=== PATIENT | male | born 1970 | race Caucasian/White ===

== ENCOUNTER 2021-01-06 12:55 | Emergency (ER) | payer OTHER ==
--- OUTSIDE RECORDS SUMMARY | 2021-01-06 12:58 | XMS REPORT | Continuity of Care Document ---
:1970 Author Organization [facility] t Address [address] [place] [address] Care Team Providers Name Role Phone LYLE Attending Clinician Unavailable NAIF Attending Clinician Unavailable Problems Condition Condition Condition Status Onset Resolution Last Treating Co mments Source Name Details Category Date Date Treatment Clinician Date Diabetes Diabetes Problem Active Unive rs mellitus mellitus ity of type 1, type 1, [place] uncontroll uncontroll Ph ysici ed ed ans Obesity Obesity Problem Active Univers (BMI (BMI ity of 30-39.9) 30-39.9) [place] Physici ans Allergies, Adverse Reactions, Alerts This patient has no known allergies or adverse reactions. Family History Family Member Diagnosis Comments Start Date Stop Date Source Grandmother Family history of [facility] [place] diabetes mellitus Physici ans Grandfather Family history of [facility] [place] [place] diabetes mellitus Physici ans Brother Family history of [facility] [place] type 1 diabetes Physician s mellitus Social History Smoking Status Start Date Stop Date Source Never smoker [facility] Physicians Medications Ordered Filled Start Stop Current Ordering Indication Dosage Frequency Signature Comments Components Source Medication Medication Date Date Medication? Clinician (SIG) Name Name Joe Diaz Yes SAYEEDA 28- DAY Univers Anh 14 Anh 14 6-21 BILKIS SUPPLY ity of Day Sensor Day Sensor 00:00: M.D. FREEYLE [place] 00 ANH 14 Physici DAY ans SENSORS (2 SENSORS) Tresiba Tresiba Yes SAYEEDA 35 INJECT 35 Univers FlexTouch FlexTouch 6-21 BILKIS UNIT ity of 100 UNIT/ML 100 UNIT/ML 00:00: M.D. BEDTIME [place] Subcutaneou Subcutaneou 00 P hysici s Solution s Solution ans Pen-injecto Pen-injecto r r Chuckyyle ReeStyle Yes SAYEEDA USE Univers Anh 14 Anh 14 6-21 BILKIS DIRECTED i ty of Day Barry Day Barry 00:00: M.D. [place] Device Device 00 Physici ans NovoFine NovoFine 2018-0 Yes SAYEEDA USE Univers 32G X 6 MM 32G X 6 MM 12-15 BILKIS DIRECTED. ity of 00:00: M.D. 4 [place] 00 times/day Physici ans NovoLOG NovoLOG 2018-0 Yes SAYEEDA with Univers FlexPen 100 FlexPen 100 12-15 BILKIS correction ity of UNIT/ML UNIT/ML 00:00: M.D. scale [place] Subcutaneou Subcutaneou 00 1:40>140, Physici s Solution s Solution MAXIMUM 50 ans Pen-injecto Pen-injecto UNITS PER r r DAY Relion Relion Yes M.A. Univers Blood Blood ity of Glucose Glucose [place] Monitor Monitor Physici MISC MISC ans Vital Signs Vital Name Observation Time Observation Value Comments Source BP Systolic 2019-05-11 125 mm[Hg] Location: [facility] 10:37:00 Position: [place] Physician s Sitting BP Diastolic 2019-05-11 85 mm[Hg] Location: [facility] 10:37:00 Position: [place] Physician s Sitting Height 2019-05-11 70.75 [in_us] [facility] 10:37:00 [place] Physician s Weight 2019-05-11 240 [lb_av] [facility] 10:37:00 [place] Physician s Body Mass Index 2019-05-11 33.71 kg/m2 University o f Calculated 10:37:00 [place] Physician s Heart Rate 2019-05-11 83 /min [facility] 10:37:00 [place] Physician s BP Systolic 2018-11-13 137 mm[Hg] Location: [facility] 10:55:00 Position: [place] Physician s Sitting BP Diastolic 2018-11-13 87 mm[Hg] Location: [facility] 10:55:00 Position: [place] Physician s Sitting Height 2018-11-13 70.75 [in_us] [facility] 10:55:00 [place] Physician s Weight 2018-11-13 241 [lb_av] [facility] 10:55:00 [place] Physician s Body Mass Index 2018-11-13 33.85 kg/m2 University o f Calculated 10:55:00 [place] Physician s Heart Rate 2018-11-13 78 /min University 10:55:00 [place] Physician s BP Systolic 2018-05-07 127 mm[Hg] Location: [facility]; [place] 13:17:00 Position: [place] Physician s Sitting BP Diastolic 2018-05-07 87 mm[Hg] Location: E; [place] [facility] 13:17:00 Position: [place] Physician s Sitting Height 2018-05-07 70 [in_us] University of 13:17:00 [place] Physician s Weight 2018-05-07 256 [lb_av] University of 13:17:00 [place] Physician s Body Mass Index 2018-05-07 36.73 kg/m2 University o f Calculated 13:17:00 [place] Physician s Heart Rate 2018-05-07 83 /min University of 13:17:00 [place] Physician s BP Systolic 2017-12-15 128 mm[Hg] Location: [facility]; [facility] 08:39:00 Position: [place] Physician s Sitting BP Diastolic 2017-12-15 85 mm[Hg] Location: [place]; [place] [facility] 08:39:00 Position: [place] Physician s Sitting Height 2017-12-15 70 [in_us] University of 08:39:00 [place] Physician s Weight 2017-12-15 237 [lb_av] University of 08:39:00 [place] Physician s Body Mass Index 2017-12-15 34.01 kg/m2 University o f Calculated 08:39:00 [place] Physician s Heart Rate 2017-12-15 80 /min University of 08:39:00 [place] Physician s BP Systolic 2017-08-05 120 mm[Hg] Location: [facility]; [facility] 10:50:00 Position: [place] Physician s Sitting BP Diastolic 2017-08-05 83 mm[Hg] Location: [place]; [facility] 10:50:00 Position: [place] Physician s Sitting Height 2017-08-05 70 [in_us] University of 10:50:00 [place] Physician s Weight 2017-08-05 245 [lb_av] University of 10:50:00 [place] Physician s Body Mass Index 2017-08-05 35.15 kg/m2 University o f Calculated 10:50:00 [place] Physician s Heart Rate 2017-08-05 73 /min University of 10:50:00 [place] Physician s BP Systolic 2017-07-04 123 mm[Hg] Location: [place]; [facility] 09:16:00 Position: [place] Physician s Sitting BP Diastolic 2017-07-04 80 mm[Hg] Location: [facility]; [facility] 09:16:00 Position: [place] Physician s Sitting Height 2017-07-04 70 [in_us] [facility] 09:16:00 [place] Physician s Weight 2017-07-04 237 [lb_av] [facility] 09:16:00 [place] Physician s Body Mass Index 2017-07-04 34.01 kg/m2 University o f Calculated 09:16:00 [place] Physician s Heart Rate 2017-07-04 88 /min [facility] 09:16:00 [place] Physician s BP Systolic 2017-05-28 127 mm[Hg] Location: [facility]; [facility] 15:46:00 Position: [place] Physician s Sitting BP Diastolic 2017-05-28 82 mm[Hg] Location: [facility] 15:46:00 Position: [place] Physician s Sitting Height 2017-05-28 70 [in_us] [facility] 15:46:00 [place] Physician s Weight 2017-05-28 243 [lb_av] [facility] 15:46:00 [place] Physician s Body Mass Index 2017-05-28 34.87 kg/m2 [place] [facility] Calculated 15:46:00 [place] Physician s Heart Rate 2017-05-28 81 /min [facility] 15:46:00 [place] Physician s Procedures Procedure Date / Time Performing Clinician Source Performed [O] Hemoglobin A1c (in 2019-05-11 00:00:00 [facility] office) Physicians Glucose (Point of Care 2019-05-11 00:00:00 [facility] In Office) Physicians [QL] CMP W/EGFR 2018-11-13 00:00:00 [facility] Physicians [QL] LIPID PANEL 2018-11-13 00:00:00 [facility] Physicians [QL] MICROALBUMIN, 2018-11-13 00:00:00 [facility] RANDOM URINE Physicians (W/CREATININE) [QL] T4, FREE 2018-11-13 00:00:00 [place] [facility] Physicians [QL] TSH, 3RD 2018-11-13 00:00:00 [place] [facility] GENERATION Physicians [QL] HEMOGLOBIN A1c 2018-11-13 00:00:00 [facility] Physicians [QL] CMP W/EGFR 2018-05-07 00:00:00 [facility] Physicians [[facility]] LIPID PANEL 2018-05-07 00:00:00 [facility] Physicians [QL] MICROALBUMIN, 2018-05-07 00:00:00 [facility] RANDOM URINE Physicians (W/CREATININE) [[facility]] T4, FREE 2018-05-07 00:00:00 [place] [facility] Physicians [[facility]] TSH, 3RD 2018-05-07 00:00:00 [place] [facility] Physicians [[facility]] HEMOGLOBIN A1c 2018-05-07 00:00:00 [facility] Physicians History of Appendectomy [facility] Physicians History of Cataract [facility] o [facility] surgery Physicians Encounters Start End Encounter Admission Attending Care Care Encounter Source Date/Time Date/Time Type Type Clinicians Facility Department ID 2019-06-19 2019-06-19 INOCENTE Waller [facility] [id number] Univers 08:30:00 08:30:00 t; LISA ALVARENGA lty - [place] GONZALEZ [place] Physici ans 2019-05-11 2019-05-11 AppointINOCENTE Bravo [facility] [id number] Univers 10:20:00 10:20:00 t; LISA ALVARENGA lty - [place] GONZALEZ M.D. Physici ans 2018-12-17 2018-12-17 INOCENTE Waller [facility] [id number] Univers 10:40:00 10:40:00 t; LISA ALVARENGA it y of [place] GONZALEZ M.D. Physici ans 2018-11-13 2018-11-13 AppointINOCENTE Bravo [facility] [id number] Univers 10:40:00 10:40:00 t; LISA ALVARENGA lty - [place] GONZALEZ M.D. Physici ans 2018-10-02 2018-10-02 INOCENTE Waller [facility] [id number] Univers 11:20:00 11:20:00 t; LISA ALVARENGA it y of [place] GONZALEZ M.D. Physici ans 2018-08-07 2018-08-07 AppointINOCENTE Bravo UTP [id number] Univers 13:00:00 13:00:00 t; LISA ALVARENGA it y of [place] GONZALEZ [facility] Physici ans 2018-05-07 2018-05-07 Appointmen CONSTANCESivan [facility] [id number] Univers 13:00:00 13:00:00 t; LISA ALVARENGA it y of [place] GONZALE[place] Physici ans 2017-12-15 2017-12-15 Appointmen LYLE, [facility] [id number] Univers 08:20:00 08:20:00 t; LISA ALVARENGA it y of [place] GONZALEZ [facility] Physici ans 2017-11-07 2017-11-07 Appointmen LYLE, [facility] [id number] Univers 13:00:00 13:00:00 t; LISA ALVARENGA it y of [place] GONZALEZ [place] Physici ans 2017-11-06 2017-11-06 Appointmen LYLE, [facility] [id number] Univers 13:00:00 13:00:00 t; LISA ALVARENGA it y of [place] GONZALEZ [facility] Physici ans 2017-08-05 2017-08-05 Appointmen LYLE [facility] [id number] Univers 10:40:00 10:40:00 t; LISA ALVARENGA it y of [place] GONZALEZ [place] Physici ans 2017-07-04 2017-07-04 Appointmen LYLE, [facility] [id number] Univers 09:00:00 09:00:00 t; LISA ALVARENGA it y of [place] GONZALEZ [facility] Physici ans 2017-07-04 2017-07-04 Appointmen NAIF, INOCENTE Alyson [id number] Univers 08:30:00 08:30:00 t; LIZZ DISLA [place] ZAMUDIO [facility] Physici ans 2017-05-28 2017-05-28 Appointmen INOCENTE DISLA [place] [id number] Univers 16:00:00 16:00:00 t; LIZZ DISLA ity of [place] Z[place] [facility] Physici ans 2017-05-28 2017-05-28 Appointmen INOCENTE ALVARENGA [place] [id number] Univers 15:20:00 15:20:00 t; LISA ALVARENGA it y of [place] GONZALEZ [facility] Physici ans 2017-02-28 2017-02-28 Appointmen INOCENTE ALVARENGA [facility] [id number] Univers 10:00:00 10:00:00 t; LISA ALVARENGA it y of [place] GONZALEZ [facility] Physici ans 2017-01-31 2017-01-31 AppointINOCENTE Bravo [facility] [id number] Univers 09:40:00 09:40:00 t; LISA ALVARENGA it y of [place] GONZALEZ [facility] Physici ans 2017-01-02 2017-01-02 [facility] [id number] Univers 14:40:00 14:40:00 t; LISA ALVARENGA it y of SAYEEDA, M.D. [facility] Physici ans Results Test Description Test Time Test Comments Results Result Comments Source [O] Hemoglobin A1c (in office) 2019-05-11 14:20:00 Test Item Value Reference Range Interpretation Comme nts HEMOGLOBIN A1c; Abnormal (test code = 4548-4) 7.2 A [facility] Physicians[O] Hemoglobin A1c (in office)2018-11-13 13:40:00 Test Item Value Reference Range Interpretation Comments HEMOGLOBIN A1c; Abnormal (test code = 7.3 A 4548-4) [facility] PhysiciansGlucose (Point of Care In Office)2018-11-13 13:40:00 Test Item Value Reference Range Interpretation Comments Glucose POC Lifescan (test code = 162 A Glucose POC Lifescan) [facility] Physicians[QLH] CMP [id number] 12:06:01 Test Item Value Reference Range Interpretation Comments Sodium Level 143 {mEq/l} 135-145 (test code = 2951-2) Potassium Level 4.1 {mEq/l} 3.5-5.1 (test code = 2823-3) Chloride Level 107 {mEq/l} 95-109 (test code = 5-0) Carbon Dioxide 28 {mEq/l} 24-32 (test code = 2027-) AGAP (test code = 12.1 {mEq/l} 10.0-20.0 70184-9) Glucose Lvl (test 79 mg/dl 70-99 Adult refe rence range code = 2345-7) values reflec t the clinical guidel inesof the [place] Diabet es Association. Creatinine Lvl 1.00 mg/dl 0.50-1.40 (test code = 2160-0) Blood Urea 9 mg/dl 7-22 Nitrogen (test code = 3094-0) BUN/Creatinine 9 6-25 Ratio (test code = 3097-3) Total Protein 6.7 g/dl 6.4-8.4 (test code = 2885-2) Albumin Lvl (test 3.9 g/dl 3.5-5.0 code = 1751-7) Globulin (test 2.8 g/dl 2.7-4.2 code = 53853-1) A/G Ratio (test 1.4 0.7-1.6 code = 1759-0) Calcium Level 9.0 mg/dl 8.5-10.5 Total (test code = 30255-4) ALT (test code = 35 u/l 0-65 1743-4) AST (test code = 14 u/l 0-37 95209-5) Alk Phos (test 72 u/l 39-136 code = 1783-0) Bili Total (test 1.0 mg/dl 0.2-1.3 code = 1974-) eGFR (test code = 88 The eGFR i s calculated 10282-9) {ML/MIN/1.7} using the CKD-E PI formula. In mos t young, healthyindividu als the eGFR will be >9 0 mL/min/1.73m2. The eGFR declines with a ge. AneGFR of 60-89 may be normal in some population s, particularly th e elderly, forwhom the CKD -EPI formula has not been extensively candie idated. Use of the eGFR isnot recommended in the following populations:Ind ividuals with unstable c reatinine concentrations, including patient s and those with seri ous co-morbid conditions.Krupa ents with extremes in mus luis mass or diet.The simeon a above are obtained fr om the National Kidney Disease Education Progr am(NKDEP) which gege mann recommends that when the eGFR is used in patientswith ex tremes of body mass index for purposes of carolyn g dosing, the eGFR should be multiplied by t he estimated BMI. [facility]icians[[facility]] LIPID [id number] 12:06:01 Test Item Value Reference Range Interpretation Comments Chol (test code = 2093-3) 168 mg/dl <=199 Trig (test code = 2571-8) 87 mg/dl <=149 HDL Cholesterol; Below Low 50 mg/dl >=61 Threshold (test code = 2085-9) LDL; Above High Threshold (test 101 mg/dl <=99 code = 94704-0) VLDL (test code = VLDL) 17 CHD Risk; Below Low Threshold (test 3.36 4.00-7.30 code = 68047-3) [facility]] T4, [id number] 12:06:01 Test Item Value Reference Range Interpretation Comments T4 Free (test code = 3024-7) 0.84 ng/dl 0.76-1.46 [facility] TSH, 3RD [id number] 12:06:01 Test Item Value Reference Range Interpretation Comments TSH (test code = 27206-9) 2.800 {uIU/ml} 0.360-3.740 [facility]] HEMOGLOBIN [id number] 12:06:01 Test Item Value Reference Range Interpretation Comments Hemoglobin A1c; Above High Threshold 7.2 % <=5.6 (test code = 4548-4) [facility] MICROALBUMIN, RANDOM URINE (W/CREATININE) 2018-11-13 12:06:01 Test Item Value Reference Range Interpretation Comments U Creatinine (test 223.00 mg/dl No establ ished code = 2161-8) reference ran ge. Urine Microalbumin 10.1 mg/L No establ ished (test code = Urine reference range. Microalbumin) Urine Microalbuming 4.5 mg/g <=30.0 Creatinine Ratio (test code = 34484-9) [facility] Physicians[O] Hemoglobin A1c (in office)2018-05-07 13:21:00 Test Item Value Reference Range Interpretation Comments HEMOGLOBIN A1c; Abnormal (test code = 7.2 A 4548-4) [facility] PhysiciansGlucose (Point of Care In Office)2018-05-07 13:16:00 Test Item Value Reference Range Interpretation Comments Glucose POC Lifescan (test code = 352 A Glucose POC Lifescan) [facility] PhysiciansGlucose (Point of Care In Office)2017-12-15 08:46:00 Test Item Value Reference Range Interpretation Comments Glucose POC Lifescan (test code = 235 A Glucose POC Lifescan) [facility]icians[O] Hemoglobin A1c (in office)2017-12-15 08:45:00 Test Item Value Reference Range Interpretation Comments HEMOGLOBIN A1c; Abnormal (test code = 8.9 A 4548-4) [facility] Physicians[O] Hemoglobin A1c (in office)2017-08-05 11:00:00 Test Item Value Reference Range Interpretation Comments HEMOGLOBIN A1c; Abnormal (test code = 8.6 A 4548-4) [facility] Physicians[H] Celiac Pnl w/Rflx Endomy Ab [id number] 13:27:01 Test Item Value Reference Range Interpretation Comments IgA Lvl (test code = IgA Lvl) 169.0 mg/dl 68.0-378.0 Gliadin (Deamidated Peptide)IgA <0.2 <=14.9 Ab (test code = Gliadin (Deamidated Peptide)IgA Ab) Gliadin (Deamidated Peptide)IgG <0.4 <=14.9 Ab (test code = Gliadin (Deamidated Peptide)IgG Ab) Tissue Transglutaminase (tTG) IgA <0.5 <=14.9 (test code = Tissue Transglutaminase (tTG) IgA) Tissue Transglutaminase (tTg) IgG <0.8 <=14.9 (test code = Tissue Transglutaminase (tTg) IgG) [facility]] THYROID PEROXIDASE [id number] 13:27:01 Test Item Value Reference Range Interpretation Comments Thyroid Peroxidase (TPO) Antibody 37 {IU/ml} <=60 (test code = Thyroid Peroxidase (TPO) Antibody) [facility]] MICROALBUMIN, RANDOM URINE (W/CREATININE) 2017-05-30 13:27:01 Test Item Value Reference Range Interpretation Comments Urine Microalbumin <5.0 (test code = Urine Microalbumin) U Creatinine (test 47.20 mg/dl No establ ished code = U Creatinine) referen ce ranges. Urine Microalbuming <10.6 <=30.0 Creatinine Ratio (test code = 83240-5) [facility]] CMP [id number] 13:27:01 Test Item Value Reference Range Interpretation Comments Sodium Level 137 {mEq/l} 135-145 (test code = Sodium Level) Potassium Level 4.5 {mEq/l} 3.5-5.1 (test code = Potassium Level) Chloride Level 99 {mEq/l} 95-109 (test code = Chloride Level) Carbon Dioxide 30 {mEq/l} 24-32 (test code = Carbon Dioxide) AGAP (test code = 12.5 {mEq/l} 10.0-20.0 AGAP) Glucose Lvl (test 328 mg/dl 70-99 Adult refe rence range code = Glucose values reflec t the Lvl) clinical guidel inesof the [place] Diabet es Association. Creatinine Lvl 1.10 mg/dl 0.50-1.40 (test code = Creatinine Lvl) Blood Urea 7 mg/dl 7-22 Nitrogen (test code = Blood Urea Nitrogen) BUN/Creatinine 6 6-25 Ratio (test code = BUN/Creatinine Ratio) Total Protein 7.7 g/dl 6.4-8.4 (test code = 07766-8) Albumin Lvl (test 4.2 g/dl 3.5-5.0 code = 1751-7) Globulin (test 3.5 g/dl 2.7-4.2 code = Globulin) A/G Ratio (test 1.2 0.7-1.6 code = A/G Ratio) Calcium Level 9.3 mg/dl 8.5-10.5 Total (test code = Calcium Level Total) ALT (test code = 31 u/l 0-65 1742-6) AST (test code = 19 u/l 0-37 1916-6) Bili Total (test 0.9 mg/dl 0.2-1.3 code = 31793-1) Alk Phos (test 83 u/l 39-136 code = 1783-0) eGFR (test code = 80 The eGFR i s calculated eGFR) {ML/MIN/1.7} using the CKD-E PI formula. In mos t young, healthyindividu als the eGFR will be >9 0 mL/min/1.73m2. The eGFR declines with a ge. AneGFR of 60-89 may be normal in some population s, particularly th e elderly, forwhom the CKD -EPI formula has not been extensively candie idated. Use of the eGFR isnot recommended in the following populations:Ind ividuals with unstable c reatinine concentrations, including patient s and those with seri ous co-morbid conditions.Krupa ents with extremes in mus luis mass or diet.The simeon a above are obtained fr om the National Kidney Disease Education Progr am(NKDEP) which gege mann recommends that when the eGFR is used in patientswith ex tremes of body mass index for purposes of carolyn g dosing, the eGFR should be multiplied by t he estimated BMI. [facility]] LIPID [id number] 13:27:01 Test Item Value Reference Range Interpretation Comments Chol (test code = Chol) 146 mg/dl <=199 Trig (test code = 2571-8) 124 mg/dl <=149 HDL Cholesterol (test code = HDL 46 mg/dl >=61 Cholesterol) LDL (test code = LDL) 75 mg/dl <=99 VLDL (test code = VLDL) 25 CHD Risk (test code = CHD Risk) 3.17 4.00-7.30 [facility]] T4, [id number] 13:27:01 Test Item Value Reference Range Interpretation Comments T4 Free (test code = T4 Free) 0.99 ng/dl 0.76-1.46 [facility]] TSH, 3RD [id number] 13:27:01 Test Item Value Reference Range Interpretation Comments TSH (test code = 59456-1) 3.580 {uIU/ml} 0.360-3.740 [facility][H] Misc [id number] 13:27:01 Test Item Value Reference Range Interpretation Comments Misc [facility] (test SEE COMMENT TALA 65 code = Misc [facility]) ANTIBOD YRESULT: >250 IU/MLREFERENCE RANGE: <5IA-2 ANTIBODYRESULT: <0.8 U/MLREFERENCE R CIRILO: <0.8INSULIN AUTOANTIBODYRES ULT: 20.5 U/MLREFERE NCE RANGE: <0.4QUE ST [id number] [place] [address] [facility][O] Hemoglobin A1c (in office)2017-05-28 16:17:00 Test Item Value Reference Range Interpretation Comments HEMOGLOBIN A1c; Abnormal (test code = 8.3 A 4548-4) [facility] Physicians
--- NOTE | 2021-01-06 13:27 | EDPHYS ---
Physician Documentation [facility] Name: Heriberto Alfredo Age: 50 yrs Sex: Male : 1970 Arrival Date: 01/06/2021 Time: 13:00 Bed Waiting Private MD: ED Physician Alek Harding HPI: 01/06 13:50 This 50 yrs old Male presents to ER via Ambulatory with complaints of Need pm1 Insulin prescription. 13:50 With complaints of medication refill. Onset: The symptoms/episode began/occurred today. pm1 Severity of symptoms: Pain is currently a 0 / 10. The patient has not experienced similar symptoms in the past. The patient has not recently seen a physician, has an appointment scheduled, 2 to 3 weeks. Presenting to the ER with complaints of prescription refill for his NovoLog FlexPen and sensors for freestyle anh 2. Patient is moving to [place] and would like these prescriptions filled so he has time to see his new physician there. Historical: - Allergies: 13:47 No Known Allergies; ss - Immunization history:: Adult Immunizations up to date. - Social history:: Smoking status: Patient denies any tobacco usage or history of. ROS: 13:50 Constitutional: Negative for fever, chills, and weight loss, Cardiovascular: Negative pm1 for chest pain, palpitations, and edema, Respiratory: Negative for shortness of breath, cough, wheezing, and pleuritic chest pain, MS/Extremity: Negative for injury and deformity, Skin: Negative for injury, rash, and discoloration. 13:50 Neuro: Negative for headache, weakness, numbness, tingling, and seizure. 13:50 All other systems are negative. Exam: 13:50 Constitutional: This is a well developed, well nourished patient who is awake, alert, pm1 and in no acute distress. Head/Face: Normocephalic, atraumatic. 13:50 Skin: Warm, dry with normal turgor. Normal color with no rashes, no lesions, and no evidence of cellulitis. MS/ Extremity: Pulses equal, no cyanosis. Neurovascular intact. Full, normal range of motion. 13:50 Eyes: Exam is negative for acute changes, Extraocular movements: no acute changes, Conjunctiva: no acute changes, no injection. 13:50 ENT: Exam is negative for acute changes, Mouth: Lips: normal, Oral mucosa: normal, pink and intact, moist. 13:50 Cardiovascular: Exam negative for acute changes, Rate: normal, Rhythm: regular, Pulses: no pulse deficits are appreciated. 13:50 Respiratory: Exam negative for acute changes, respiratory distress, shortness of breath. 13:50 Neuro: Exam negative for acute changes, Orientation: is normal, Mentation: is normal, Motor: is normal, moves all fours. Vital Signs: 14:16 BP 127 / 72; Pulse 78; Resp 16; Temp 98.2(TE); Pulse Ox 99% on R/A; Pain 0/10; ss MDM: 13:26 Patient medically screened. pm1 13:55 Data reviewed: vital signs. Data interpreted: Pulse oximetry: on room air is 99 %. pm1 Interpretation: normal. 13:55 Counseling: I had a detailed discussion with the patient and/or guardian regarding: the pm1 historical points, exam findings, and any diagnostic results supporting the discharge/admit diagnosis, the need for outpatient follow up, a family practitioner, to return to the emergency department if symptoms worsen or persist or if there are any questions or concerns that arise at home. Administered Medications: No medications were administered Disposition Summary: 01/06/21 13:26 Discharge Ordered Location: Home pm1 Problem: new pm1 Symptoms: have improved pm1 Condition: Stable pm1 Diagnosis - Encounter for medication refill pm1 Followup: pm1 - With: Emergency Department - When: As needed - Reason: Worsening of condition Followup: pm1 - With: Private Physician - When: 2 - 3 days - Reason: Recheck today's complaints, Continuance of care, Re-evaluation by your physician Discharge Instructions: - Discharge Summary Sheet pm1 - Medicine Refill at the Emergency Department pm1 Forms: - Medication Reconciliation Form pm1 - Thank You Letter pm1 - Antibiotic Education pm1 - Prescription Opioid Use pm1 Prescriptions: - Novolog Flexpen U-100 Insulin 100 unit/mL (3 mL) Subcutaneous insulin pen - inject 10 unit by SUBCUTANEOUS route as directed; 5 Pre-filled Pen Syringe; pm1 Refills: 0, Product Selection Permitted - FresStyle Anh 2 Sensor (2 pack) - apply 1 application by TOPICAL route as directed for 28 days; 1 Each; Refills: pm1 0, Product Selection Permitted Addendum: 01/07/2021 18:43 Co-signature as Attending Physician, Alek Harding MD I agree with the assessment and t w4 plan of care. Signatures: Maxine Fu, DENISSE RN ss Asael Henson, KNITTING MACHINE OPERATOR AUTOMATIC KNITTING MACHINE OPERATOR AUTOMATIC pm1 Alek Harding MD MD tw4
--- NOTE | 2021-01-06 14:17 | ER ---
Nurse's Notes [facility] Name: Heriberto Alfredo Age: 50 yrs Sex: Male : 1970 Arrival Date: 01/06/2021 Time: 13:00 Bed Waiting Private MD: Diagnosis: Encounter for medication refill Presentation: 01/06 13:46 Chief complaint: Patient states: Needs insulin prescription refiled. Coronavirus ss screen: Client denies travel out of the [place] in the last 14 days. Ebola Screen: Patient denies exposure to infectious person. Patient denies travel to an Ebola-affected area in the 21 days before illness onset. Initial Sepsis Screen: Does the patient meet any 2 criteria? No. Patient's initial sepsis screen is negative. Does the patient have a suspected source of infection? No. Patient's initial sepsis screen is negative. Risk Assessment: Do you want to hurt yourself or someone else? Patient reports no desire to harm self or others. Onset of symptoms is unknown. 13:46 Method Of Arrival: Ambulatory ss 13:46 Acuity: RA 5 ss Historical: - Allergies: 13:47 No Known Allergies; ss - Immunization history:: Adult Immunizations up to date. - Social history:: Smoking status: Patient denies any tobacco usage or history of. Screenin:47 Abuse screen: Denies threats or abuse. Denies injuries from another. Nutritional ss screening: No deficits noted. Tuberculosis screening: Never had TB. Fall Risk None identified. Assessment: 13:47 General: Appears in no apparent distress. comfortable, Behavior is calm, cooperative. ss Pain: Denies pain. Neuro: Level of Consciousness is awake, alert, obeys commands. Cardiovascular: Capillary refill < 3 seconds is brisk in bilateral fingers. Respiratory: Airway is patent Respiratory effort is even, unlabored, Respiratory pattern is regular, symmetrical. EENT: Nares are clear. Derm: Skin is intact, is healthy with good turgor, Skin is dry, Skin is pink, warm \T\ dry. normal. Vital Signs: 14:16 BP 127 / 72; Pulse 78; Resp 16; Temp 98.2(TE); Pulse Ox 99% on R/A; Pain 0/10; ss ED Course: 13:00 Patient arrived in ED. ds1 13:06 Asael Henson NP is PHCP. pm1 13:06 Alek Harding MD is Attending Physician. pm1 13:47 Triage completed. ss 13:47 Arm band placed on right wrist. ss 13:47 Patient has correct armband on for positive identification. Bed in low position. Call ss light in reach. 13:48 No provider procedures requiring assistance completed. Patient did not have IV access ss during this emergency room visit. Administered Medications: No medications were administered Outcome: 13:26 Discharge ordered by MD. pm1 14:16 Discharged to home ambulatory. ss 14:16 Condition: good 14:16 Discharge instructions given to patient, Instructed on discharge instructions, follow up and referral plans. medication usage, Demonstrated understanding of instructions, follow-up care, medications, Prescriptions given X 2. 14:17 Patient left the ED. ss Signatures: Bertha Perez ds1 Maxine Fu, DENISSE RN Asael Henson, KRISTA BSW pm1
[2021-01-06 14:22] VITALS: BP 127/72; TEMP 98.2; O2SAT 99
== END 2021-01-06 14:17 | disposition home or self-care (01) ==
LOC: ER 12:55
DX: Z76.0 Encounter for issue of repeat prescription (principal)
CPT/HCPCS: 99282

== ENCOUNTER 2024-05-02 01:48 | Emergency (ER) | payer OTHER, SELFPAY ==
[2024-05-02 02:32] LABS: Absolute Basophils 0.1 K/uL (0-0.5); Absolute Eosinophils 0.1 K/uL (0-0.5); Absolute Lymphocytes (CBC) 1.4 K/uL (0.7-4.9); Absolute Monocytes 0.8 K/uL (0.1-1.3); Basophils % 1.2 % (0-1.3); Eosinophils % 1.4 % (0-4.4); Hematocrit 40.5 % (39.6-49.0); Hemoglobin 13.6 g/dL (13.6-17.9); MCHC 33.6 g/dL (32.0-36.0); MCV 89.2 fL (80-100); MPV 8.9 fL (7.6-11.3); Monocytes % 7.5 % (3.3-12.3); Neutrophils % 76.9 % (41.7-73.7); Nucleated Red Blood Cells % 0.2 % (0-0); Platelets 265 thou/uL (152-406); RBC Red Blood Cell Count 4.54 M/uL (4.33-5.43); Red Cell Distribution Width 12.6 % (12.1-15.2)
[2024-05-02 02:45] LABS: Albumin 3.2 g/dL (3.4-5.0); Albumin/Globulin Ratio 0.9 (1.1-1.8); Anion Gap 12.2 mEq/L (5.0-15.0); Bilirubin Total 0.4 mg/dL (0.2-1.0); Globulin 3.7 g/dL (2.3-3.5); Potassium 3.2 mEq/L (3.5-5.1); Protein, Total 6.9 g/dL (6.4-8.2)
[2024-05-02 03:03] LABS: Specific Gravity 1.018 (1.005-1.030); Sqamous Epithelial None Seen /HPF (None Seen); Urine Bacteria None Seen /HPF (<20); Urine Bilirubin NEGATIVE (Negative); Urine Blood Negative (Negative); Urine Clarity Clear (Clear); Urine Color Light-Yellow (Yellow); Urine Culture Reflex Order NOT NEEDED; Urine Glucose NEGATIVE (Negative); Urine Ketones NEGATIVE (Negative); Urine Micro Reflex YN NO BILL MICROSCOPIC; Urine Nitrite NEGATIVE (Negative); Urine Protein NEGATIVE (Negative); Urine RBC <5 /HPF (None Seen); Urine Urobilinogen Normal (Normal); Urine WBC <5 /HPF (<5)
--- NOTE | 2024-05-02 03:05 | ER ---
Nurse's Notes [facility] Name: Heriberto Alfredo Age: 53 yrs Sex: Male : 1970 Arrival Date: 05/02/2024 Time: 01:48 Bed 4 Private MD: Diagnosis: Hypoglycemia, unspecified Presentation: 05/02 01:54 Chief complaint: EMS states: patient had unwitnessed seizure at home, patient was al5 diaphoretic with a BGL was 31 on scene. patient was given D10 IV, patient responded to D10 and was given a sandwich to eat. patient BGL came up to 89 after D10 and during sandwich had BGL of 94. Coronavirus screen: At this time, the client does not indicate any symptoms associated with coronavirus-19. Ebola Screen: No symptoms or risks identified at this time. Initial Sepsis Screen: Does the patient meet any 2 criteria? No. Patient's initial sepsis screen is negative. Does the patient have a suspected source of infection? No. Patient's initial sepsis screen is negative. Risk Assessment: Do you want to hurt yourself or someone else? Patient reports no desire to harm self or others. Onset of symptoms was May 02, 2024. 01:54 Method Of Arrival: EMS: [facility] al5 01:54 Acuity: RA 3 al5 01:56 Care prior to arrival: Medication(s) given: D10 IV initiated. 18 GA, in the left al5 antecubital area, Glucose check: 31 BGL check again was 89, then 94. Triage Assessment: 01:57 General: Appears in no apparent distress. comfortable, Behavior is calm, cooperative. al5 Pain: Denies pain. EENT: No signs and/or symptoms were reported regarding the EENT system. Neuro: Level of Consciousness is awake, alert, obeys commands, Oriented to person, place, time, situation. Cardiovascular: Capillary refill < 3 seconds Patient's skin is warm and dry. Respiratory: Airway is patent Respiratory effort is even, unlabored, Respiratory pattern is regular, symmetrical. GI: Abdomen is flat, non-distended. : No signs and/or symptoms were reported regarding the genitourinary system. Derm: Skin is intact, is healthy with good turgor, Skin is dry, Skin is normal, Skin temperature is cool. Musculoskeletal: No signs and/or symptoms reported regarding the musculoskeletal system. Historical: - Allergies: 01:56 No Known Allergies; al5 - PMHx: 01:56 Diabetes mellitus; al5 - PSHx: 01:56 Appendectomy; al5 - Immunization history:: Adult Immunizations up to date. - Infectious Disease History:: Denies. - Social history:: Smoking status: Patient denies any tobacco usage or history of. Screenin:58 [facility] ED Fall Risk Assessment (Adult) History of falling in the last 3 months, al5 including since admission No falls in past 3 months (0 pts) Confusion or Disorientation No (0 pts) Intoxicated or Sedated No (0 pts) Impaired Gait No (0 pts) Mobility Assist Device Used No (0 pt) Altered Elimination No (0 pt) Score/Fall Risk Level 0 - 2 = Low Risk Oriented to surroundings, Maintained a safe environment, Hourly rounding (assess needs \T\ fall precautionary measures) done. Abuse screen: Denies threats or abuse. Denies injuries from another. Nutritional screening: No deficits noted. Tuberculosis screening: No symptoms or risk factors identified. Assessment: :58 Reassessment: see triage assessment. al5 03:32 Reassessment: Patient appears in no apparent distress at this time. No changes from al5 previously documented assessment. Patient and/or family updated on plan of care and expected duration. Pain level reassessed. Patient is alert, oriented x 3, equal unlabored respirations, skin warm/dry/pink. Vital Signs: 01:54 BP 132 / 88; Pulse 80; Resp 16; Temp 97.9; Pulse Ox 100% on R/A; Weight 79.38 kg; al5 Height 5 ft. 9 in. ; 02:00 BP 128 / 82; Pulse 68; Resp 18; Pulse Ox 100% on R/A; al5 02:30 BP 134 / 77; Pulse 76; Resp 17; Pulse Ox 100% on R/A; al5 03:00 BP 113 / 82; Pulse 57; Resp 16; Pulse Ox 98% on R/A; al5 01:54 Body Mass Index 25.84 (79.38 kg, 175.26 cm) al5 ED Course: 01:53 Patient arrived in ED. 5 :56 Triage completed. al5 :58 Arm band placed on right wrist. Patient placed in the treatment room, on a stretcher, al5 on pulse oximetry. 01:58 Patient has correct armband on for positive identification. Bed in low position. Call al5 light in reach. Side rails up X2. Provided Education on: plan of care. 01:58 No provider procedures requiring assistance completed. Maintain EMS IV. Dressing al5 intact. Good blood return noted. Site clean \T\ dry. Gauge \T\ site: 18G LAC. Flushed with 10 mL NS. 01:59 Rahel Brannon, RN is Primary Nurse. al5 01:59 Juan Carroll MD is Attending Physician. al5 02:18 CMP Sent. al5 02:18 CBC with Diff Sent. al5 03:33 IV discontinued, intact, bleeding controlled, No redness/swelling at site. Pressure al5 dressing applied. Administered Medications: No medications were administered Medication: 01:58 VIS not applicable for this client. al5 Point of Care Testing: Blood Glucose: 02:03 Blood Glucose: 132 mg/dL; al5 Ranges: Outcome: 03:04 Discharge ordered by . ec2 03:33 Discharged to home ambulatory, al5 03:33 Condition: good 03:33 Discharge instructions given to patient, Instructed on discharge instructions, follow up and referral plans. Demonstrated understanding of instructions, follow-up care, 03:33 Patient left the ED. al5 Signatures: Juan Carroll MD MD ecRahel Alfredo, RN RN al5
--- NOTE | 2024-05-02 03:05 | EDPHYS ---
Physician Documentation [facility] Name: Heriberto Alfredo Age: 53 yrs Sex: Male : 1970 Arrival Date: 05/02/2024 Time: 01:48 Bed 4 Private MD: ED Physician Juan Carroll HPI: 05/02 02:41 This 53 yrs old Male presents to ER via EMS with complaints of Low Blood ec2 Sugar. 02:41 Patient arrives today for evaluation of hypoglycemia. Reports she is a type I diabetic, ec2 took his medications and forgot to eat tonight. Possibly had a seizure as he woke up with saturated sheets in a sweat. No other concerns. EMS had started an IV, gave him D10 and p.o. challenge him with improvement in the blood sugar. Historical: - Allergies: 01:56 No Known Allergies; al5 - PMHx: 01:56 Diabetes mellitus; al5 - PSHx: 01:56 Appendectomy; al5 - Immunization history:: Adult Immunizations up to date. - Infectious Disease History:: Denies. - Social history:: Smoking status: Patient denies any tobacco usage or history of. ROS: 02:41 Constitutional: as per hpi ec2 Exam: 02:41 Constitutional: GEN: NAD Head: atraumatic Eyes: EOMI Ears: External ears are ec2 normal. CV: regular rate LUNGS: no respiratory distress ABD: non-distended SKIN: no evidence of rashes MSK: no evidence of trauma Vital Signs: 01:54 BP 132 / 88; Pulse 80; Resp 16; Temp 97.9; Pulse Ox 100% on R/A; Weight 79.38 kg; al5 Height 5 ft. 9 in. ; 02:00 BP 128 / 82; Pulse 68; Resp 18; Pulse Ox 100% on R/A; al5 02:30 BP 134 / 77; Pulse 76; Resp 17; Pulse Ox 100% on R/A; al5 03:00 BP 113 / 82; Pulse 57; Resp 16; Pulse Ox 98% on R/A; al5 01:54 Body Mass Index 25.84 (79.38 kg, 175.26 cm) al5 MDM: 02:05 Medical Screening Exam initiated ec2 02:41 Data reviewed: vital signs, nurses notes. ED course: Patient arrives today due to ec2 concern for hypoglycemia. Examination is revealing for well-appearing nontoxic dividual's otherwise in no acute distress. Will obtain lab work, initial blood sugar appropriate. Patient is eating without issue. Suspect hypoglycemia secondary to lack of p.o. intake and taking his medication.. 03:04 ED course: Labs reassuring, urine noninfectious. On reassessment patient is ec2 well-appearing, awake and in no acute distress with appropriate p.o. intake. Will discharge home. Return precautions given.. 05/02 02:05 Order name: CBC with Diff; Complete Time: 03:01 ec2 05/02 02:05 Order name: CMP; Complete Time: 03:01 ec2 05/02 02:05 Order name: UAM; Complete Time: 03:04 ec2 05/02 02:05 Order name: IV; Complete Time: 02:18 ec2 05/02 02:05 Order name: Accucheck; Complete Time: 02:18 ec2 Administered Medications: No medications were administered Point of Care Testing: Blood Glucose: 02:03 Blood Glucose: 132 mg/dL; al5 Ranges: Critical Glucose Levels:Adult <50 mg/dl or >400 mg/dl <40 mg/dl or >180 mg/dl Disposition Summary: 05/02/24 03:04 Discharge Ordered Notes: Location: Home ec2 Condition: Stable ec2 Diagnosis - Hypoglycemia, unspecified ec2 Followup: ec2 - With: Private Physician - When: - Reason: Re-evaluation by your physician Discharge Instructions: - Discharge Summary Sheet ec2 - Hypoglycemia ec2 Forms: - Medication Reconciliation Form ec2 - Antibiotic Education ec2 - Prescription Opioid Use ec2 - Patient Portal Instructions ec2 - Leadership Thank You Letter ec2 Signatures: Dispatcher [employer] EDMS Juan Carroll MD MD ec2 Rahel Brannon RN RN al5 Corrections: (The following items were deleted from the chart) 02:06 02:05 CBC+H.LAB.BRZ ordered. EDMS EDMS 02:06 02:05 COMPREHENSIVE METABOLIC PANEL+C.LAB.BRZ ordered. EDMS EDMS 02:06 02:06 Urinalysis W/Microscopic+U.LAB.BRZ ordered. EDMS EDMS
[2024-05-02 08:32] VITALS: TEMP 97.9
[2024-05-02 08:35] VITALS: BP 113/82; O2SAT 98
== END 2024-05-02 03:33 | disposition home or self-care (01) ==
LOC: ER 01:48
DX: E10.649 Type 1 diabetes mellitus with hypoglycemia without coma (principal)
CPT/HCPCS: 36415; 80053; 81001; 85025; 99284